=== PATIENT | female | born 1975 | race Caucasian/White ===

== ENCOUNTER → 2020-07-03 16:05 | Outpatient (CLI) | payer OTHER, SELFPAY ==
--- NOTE | ~2020-07-03 | MR_ITS ---
EXAMINATION: MR knee LT wo con DATE: 07/03/2020 17:05 INDICATION: Left knee instability post injury is in July and April 2020. More recent locking. TECHNIQUE: Magnetic resonance imaging (MRI) of the left knee was performed without intravenous contra st. Sequences included coronal PD-weighted FSE, coronal PD-weighted FS FSE, sagittal T2-weighted FSE , sagittal PD-weighted FS FSE and axial PD weighted fat saturated FSE. COMPARISON: None. FINDINGS: Medial compartment: Medial meniscus is normal. Partial-thickness cartilage loss with chondral surface regularity at the a nterior weightbearing medial femoral condyle. Additional chondral surface irregularity at the central aspect of the medial tibial plateau. Lateral compartment: Lateral meniscus is normal. Deep chondral fissuring at the anterior weightbearing lateral femoral con dyle with mild underlying subarticular edema. Patellofemoral compartment: Partial-thickness cartilage loss with chondral surface irregularity along the medial half of the late ral trochlea. There is deeper cartilage loss and fissuring with subarticular edema at the lateral jeferson f of the lateral trochlea. Partial thickness cartilage loss at the lateral patellar facet in place ap proaching full-thickness. More preserved cartilage thickness but with deep fissuring at the medial pa tellar facet. Ligaments and tendons: Anterior and posterior cruciate ligaments are normal. The medial collateral ligament and fibular steffen ateral ligament complex are normal. The extensor mechanism is normal. The visualized medial and later al hamstring tendons as well as the iliotibial band are normal. Fluid: Small knee joint effusion with mild synovitis at the suprapatellar pouch. No loose osteochondral bodi es identified. Small Acuña's cyst measuring 1.2 x 1.3 x 3.2 cm. Osseous/other: Normal marrow signal aside from the previous noted mild subarticular edema at the lateral trochlea. N o fracture or pathologic marrow replacing process. IMPRESSION: 1. 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 2. Small left knee joint effusion and small Acuña's cyst. Reviewed, dictated and finalized at location A. ER OPERATOR IMPRESSION: 1. Mild to moderate patellofemoral compartment predominant tricompartmental ost eoarthritis at the left knee with regions of moderate and high-grade chondral m alacia. 2. Small left knee joint effusion and small Acuña's cyst.
--- NOTE | ~2020-07-03 | XR_ITS ---
EXAMINATION: XR knee LT 3V DATE: 07/03/2020 17:24 INDICATION: Left knee instability with catching and grinding and limited range of motion TECHNIQUE: Standing AP, lateral and sunrise views of the left knee were obtained COMPARISON: None. FINDINGS: Alignment is normal. No fracture. Joint spaces appear normal. Small left knee joint effusion/synovit is. Soft tissues are otherwise unremarkable. IMPRESSION: 1. Small left knee joint effusion/synovitis. No evident osseous abnormality. See report from MRI repo rt also dated 07/03/2020 discussing osteoarthritis with chondromalacia in all 3 compartments which is not appreciated on the plain radiographs. Reviewed, dictated and finalized at location A. UM SYSTEM TESTER IMPRESSION: 1. Small left knee joint effusion/synovitis. No evident osseous abnormality. Se e report from MRI report also dated 07/03/2020 discussing osteoarthritis with ch ondromalacia in all 3 compartments which is not appreciated on the plain radiog raphs.
== END ==
PROVIDERS: PCP Physician Assistant; Visit Provider Physician Assistant
DX: M25.462 Effusion, left knee (principal); M17.12 Unilateral primary osteoarthritis, left knee; M71.22 Synovial cyst of popliteal space [Baker], left knee
CPT/HCPCS: 73562; 73721